=== PATIENT | male | born 1965 | race Two or more races ===

== ENCOUNTER 2024-12-29 11:08 | Emergency (ER) | payer OTHER ==
[~2024-12-29] VITALS: Ht 177.8 cm; Wt 86.2 kg
[2024-12-29] MEDS ORDERED: EZALLOR SPRINKLE5 MG (11:24)
[2024-12-29] MEDS ORDERED: METFORMIN HCL500 M3 (11:24)
[2024-12-29] MEDS ORDERED: AMLODIPINE (11:24)
[2024-12-29 11:25] VITALS: BP 139/70; O2SAT 96
[2024-12-29] MEDS ORDERED: ENALAPRIL M1 MG/1 ML (11:25)
[2024-12-29 14:40] LABS: HEMATOCRIT 40.2 % (39.0-48.0); HEMOGLOBIN 13.9 g/dL (13-16.00); MEAN CELL VOLUME 88.9 fL (80.0-100.00); MEAN CORPUSCULAR HEMOGLOBIN 30.7 pg (27.00-32.0); MEAN CORPUSCULAR HGB CONC 34.5 g/dl (32.0-36.0); PLATELET COUNT 277 K/uL (150-450); RED BLOOD COUNT 4.52 M/uL (4.00-6.00); RED CELL DISTRIBUTION WIDTH 13.9 % (11.5-14.5)
[2024-12-29 15:20] LABS: COVID-19 AG NEGATIVE (NEGATIVE)
[2024-12-29 15:53] LABS: INFLUENZA A AG NEGATIVE (NEGATIVE)
[2024-12-29] MEDS ORDERED: GUAIFENESIN/DEXTROMETHORPHAN 100MG/10ML BLIST.PACK PO ONE ×2 (16:15)
[2024-12-29] MEDS ORDERED: GILTUSS COUGH-118 M1 PO (17:05)
[2024-12-29] MEDS ORDERED: XOPENEX CO1.25 MG/0. IH (17:09)
== END 2024-12-29 18:32 | disposition home or self-care (01) ==
LOC: ER 11:09
PROVIDERS: Preventive Medicine Public Health & General Preventive Medicine
DX: J06.9 Acute upper respiratory infection, unspecified (principal); R05.9 Cough, unspecified; I10 Essential (primary) hypertension; Z20.822 Contact with and (suspected) exposure to COVID-19